=== PATIENT | male | born 1960 | race Caucasian/White ===

== ENCOUNTER 2020-08-24 08:35 | Outpatient (REF) | payer MEDICARE, MEDICAID, SELFPAY ==
[2020-08-24 10:28] LABS: Estimated Average Glucose 169 mg/dL; Hemoglobin A1c % 7.5 %
[2020-08-24 10:45] LABS: Alanine Aminotransferase 6 U/L (0-40); Albumin Level 4.5 g/dL (3.5-5.0); Alkaline Phosphatase 54 U/L (39-117); Anion Gap 16 (12-20); Aspartate Amino Transferase 9 U/L (5-37); Bilirubin Direct 0.2 mg/dL (0.0-0.5); Bilirubin Total 0.3 mg/dL (0.0-1.0); Blood Urea Nitrogen 10 mg/dL (9-16); Calcium 9.4 mg/dL (8.4-10.2); Carbon Dioxide 27 mmol/L (22-29); Chloride 97 mmol/L (96-108); Cholesterol 216 mg/dL; Estimated Glomerular Filt Rate > 60; Glucose Random 154 mg/dL (60-115); HDL Cholesterol 39 mg/dL; LDL Cholesterol Calculated 148 mg/dl; Potassium 4.5 mmol/L (3.3-5.1); Sodium 135 mmol/L (135-145); Total Protein 7.4 g/dL (6.5-8.0); Triglycerides 147 mg/dL
[2020-08-24 11:09] LABS: Thyroid Stimulating Hormone 1.99 uIU/mL (0.32-4.0)
[2020-08-24 11:17] LABS: Folate 9.1 ng/mL (> or = 4.0); Vitamin B12 189 pg/mL (200-900)
[2020-08-30 13:01] LABS: Vitamin D 25-OH, D2 <4 ng/mL; Vitamin D 25-OH, D3 6 ng/mL; Vitamin D 25-OH, Total 6 ng/mL (30-100)
== END 2020-08-24 08:36 | disposition home or self-care (01) ==
LOC: HO.10HDL 08:35
PROVIDERS: Visit Provider Internal Medicine
DX: E11.39 Type 2 diabetes mellitus with other diabetic ophthalmic complication (principal); E11.65 Type 2 diabetes mellitus with hyperglycemia
CPT/HCPCS: 36415; 80048; 80061; 80076; 82306; 82607; 82746; 83036; 84443

== ENCOUNTER 2021-05-06 15:57 | Emergency (ER) | payer MEDICARE, MEDICAID, SELFPAY ==
--- NOTE | ~2021-05-06 | CT_ITS ---
EXAMINATION: CT ABDOMEN AND PELVIS WITHOUT CONTRAST CLINICAL INFORMATION: Hematuria COMPARISON: None. TECHNIQUE: Multidetector volumetric imaging was performed from the lung bases through the pubic symphysis. Sagittal and coronal reformatted images were obtained on the technologist workstation. This CT examination was performed using dose optimization techniques as appropriate, variously including the following: *Automated exposure control *Adjustment of mA and/or kV according to patient size (this includes techniques or standardized protocols for targeted exams where dose is matched to indication/reason for exam; i.e. extremities or head) *Use of iterative reconstruction technique Total exam dose-length product 759 mGy-cm FINDINGS: The lack of intravenous contrast limits evaluation of the solid visceral organs including the liver, spleen, pancreas, and kidneys. LUNG BASES: The visualized lung bases are unremarkable. LIVER, GALLBLADDER, AND BILIARY TREE: Limited non-contrast evaluation is normal. No gross focal hepatic lesion. Normal liver size and contour. No gross biliary ductal dilation. The gallbladder is significantly distended. There are several areas of fundal gallbladder wall calcification. There is a rim calcified 2 cm calculus in the neck of the gallbladder. No gallbladder wall thickening or pericholecystic fluid to suggest acute cholecystitis. PANCREAS: Limited non-contrast evaluation is normal. No sindy-pancreatic fluid. SPLEEN: Tiny calcification in the inferior anterior spleen, possibly a granuloma. Otherwise no focal splenic lesion seen. The spleen is normal in size. ADRENAL GLANDS: Normal; no adrenal mass. KIDNEYS AND URETERS: Bilateral water density simple appearing renal cysts for which no imaging follow-up is recommended. No calculi or hydronephrosis. No hydroureter. GASTROINTESTINAL TRACT: Stomach is collapsed. Small bowel nondilated. Normal appendix. No colonic wall thickening or pericolonic inflammatory changes to suggest colitis or diverticulitis. ABDOMINAL WALL: No hernia seen. LYMPH NODES: No pathologically enlarged lymph nodes in the abdomen or pelvis. VASCULAR: Circumferential calcified atherosclerotic changes of the normal caliber abdominal aorta. BLADDER: Unremarkable. PELVIC VISCERA: Normal noncontrast appearance of the prostate and seminal vesicles. OSSEOUS STRUCTURES: No acute or suspicious osseous abnormalities. CT/CT abdomen pelvis wo con IMPRESSION: No renal calculi or hydronephrosis. No etiology for hematuria identified on noncontrast CT. 2 cm rim calcified gallstone in the neck of the gallbladder with several areas of gallbladder wall calcification. No gallbladder wall thickening or pericholecystic fluid to suggest acute cholecystitis. Recommend nonemergent outpatient surgical consultation given the gallbladder wall calcification, which may reflect developing porcelain gallbladder, and cholelithiasis.
[2021-05-06 16:04] VITALS: BP 190/93; PULSE 63; O2SAT 100
--- NOTE | 2021-05-06 16:09 | ED_ITS ---
HPI - General Adult General Chief complaint: Urogenital-Male Stated complaint: hematuria/diarrhea Time Seen by Provider: 05/06/21 16:02 Source: patient Mode of arrival: EMS Limitations: no limitations History of Present Illness HPI narrative: This is a very pleasant 60 years old male presented to the emergency department via ambulance with chief complaint of diarrhea, hematuria. 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 Onset (ago): day(s) (1) Radiation: non-radiation Severity: moderate Quality: aching Pain Consistency: constant Relieving factors: none Exacerbating factors: none Related Data Home Medications Medication Instructions Recorded Confirmed phenobarbital 32.4 mg tablet 32.4 mg PO QID 05/25/20 03/15/21 levetiracetam 250 mg tablet 250 mg PO BID 08/23/20 03/15/21 (Keppra) Previous Rx's Medication Instructions Recorded cholecalciferol (vitamin D3) 1,250 1,250 mcg PO QWEEK #12 cap 01/05/21 mcg (50,000 unit) capsule omeprazole 20 mg capsule,delayed 20 mg PO DAILY #90 cap 01/05/21 release paroxetine HCl 20 mg tablet 20 mg PO BEDTIME #30 tab 01/05/21 empagliflozin 25 mg tablet 25 mg PO DAILY #90 tab 02/04/21 (Jardiance) losartan 50 mg tablet 50 mg PO BID #90 tab 02/04/21 metformin 500 mg tablet 500 mg PO BID #180 tab 02/04/21 gemfibrozil 600 mg tablet 600 mg PO BID #60 tab 03/07/21 tamsulosin 0.4 mg capsule 0.8 mg PO BEDTIME #60 cap 03/07/21 VITAMIN B12 1,000 MCG SUBL TAB 1 tab PO DAILY #30 cap 03/27/21 finasteride 5 mg tablet 5 mg PO DAILY #30 tab 04/05/21 hydralazine 10 mg tablet 10 mg PO BID #60 tab 04/05/21 metoprolol succinate 100 mg 100 mg PO QPM #30 tab 04/05/21 tablet,extended release 24 hr Allergies Allergy/AdvReac Type Severity Reaction Status Date / Time lisinopril [LISINOPRIL] Allergy Unknown UNKNOWN Verified 05/06/21 11:22 penicillin V Allergy Unknown too long Verified 05/06/21 11:22 ago to remember Penicillins [PENICILLINS] Allergy Unknown to long Verified 05/06/21 11:22 ago to remember Review of Systems Review of Systems: Yes all other systems are reviewed and are negative Constitutional: Constitutional: Denies fever(s) and Denies headache(s) ENT: Denies headache(s) Cardiovascular: Cardiovascular: Reports no additional cardiovascular comp laints, Denies chest pain and Denies orthopnea Respiratory: Respiratory: Reports no additional respiratory complaints Gastrointestinal: Gastrointestinal: Reports no additional gastrointestinal complaints Neurologic: Denies headache(s) [facility] Past Medical History Attestation statement: The following information was validated with the patient. Medical History Benign prostate hyperplasia 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 Essential (primary) hypertension GERD (gastroesophageal reflux disease) Seizure Surgical History History of cataract surgery History of fasciotomy History of orthopedic surgery Family History Family History Father Myocardial infarction Mother Acute CVA (cerebrovascular accident) Brother In good health Brother In good health Sister In good health Sister In good health Social History Social History Housing: Apartment Alcohol intake: never Patient Tobacco Use Status: Former Tobacco user Use of substances other than those prescribed or required for medical reasons: No Advance Directives: No Advance Directives Information Provided: No service: No Current occupational status: disabled Physical Exam Const: General: cooperative Orientation/consciousness: patient oriented x3 HENMT: Head: Yes normal to inspection Face and sinus: Yes normal facial exam Mouth: Normal oral and palatal mucosa present Throat: Yes posterior oropharynx normal Neck: Neck: Yes normal visual inspection and Yes full ROM Chest: Chest palpation & inspection: normal inspection of the chest Resp: Effort & Inspection: normal respiratory effort Auscultation: clear to auscultation bilaterally Cardio: Jugular venous distension: no JVD Rate: regular rate Rhythm: regular rhythm GI: Inspection: Yes normal to inspection Palpation (GI): Soft to palpation, not firm, nontender and no guarding Skin: General skin exam: no rashes or lesions noted Neuro: General: patient oriented x3 Course Reevaluation(s) Reevaluation #1: His workup is essentially negative he has few red cell in the urine, I explained to the patient will need a cystoscopy which can be done as outpatient, I gave him the number the urologist Dr. Pickard he will call for follow-up at this time the patient can be discharged home Medical Decision Making Lab Data Result diagrams: 05/06/21 16:36 05/06/21 16:36 Labs: Lab Results 05/06/21 05/06/21 05/06/21 Range/Units 16:32 16:36 16:36 WBC 4.3 L (4.8-10.8) X10*3/uL RBC 4.70 (4.60-5.80) X10*6/uL Hgb 14.1 (14.0-18.0) g/dl Hct 42.0 (42.0-52.0) % MCV 89.4 (80.0-98.0) fL MCH 30.0 (27.0-33.0) pg MCHC 33.6 (31.0-36.0) g/dl RDW 13.2 (11.0-16.0) % Plt Count 218 (160-400) X10*3/uL MPV 10.0 (9.4-12.4) fL Immature Gran % (Auto) 0.2 (0.0-0.4) % Neut % (Auto) 59.2 (45-73) % Lymph % (Auto) 22.1 (20-40) % [place] % (Auto) 8.2 (2-11) % Eos % (Auto) 9.6 H (0-4) % Baso % (Auto) 0.7 (0-2) % Lymph # (Auto) 0.9 L (1.2-4.9) X10*3/uL [place] # (Auto) 0.4 (0.1-1.2) X10*3/uL Eos # (Auto) 0.4 (0.0-0.4) X10*3/uL Baso # (Auto) 0.0 (0.0-0.2) X10*3/uL Abs Immat Gran (auto) 0.01 (0.00-0.03) X10*3/uL Absolute Neuts (auto) 2.5 (2.0-8.3) x10*3/uL Absolute Nucleated RBC 0.000 (0.0-0.012) X10*3/uL Nucleated RBC % (auto) 0.0 (0.0-0.2) /100WBC Sodium 136 (135-145) mmol/L Potassium 3.7 (3.3-5.1) mmol/L Chloride 96 (96-108) mmol/L Carbon Dioxide 25 (22-29) mmol/L Anion Gap 19 (12-20) BUN 9 (9-16) mg/dL Creatinine 0.76 (0.5-1.4) mg/dL Estim Creat Clear Calc TNP Estimated GFR > 60 Random Glucose 61 D (60-115) mg/dL Calcium 9.3 (8.4-10.2) mg/dL Total Bilirubin 0.5 (0.0-1.0) mg/dL AST 15 D (5-37) U/L ALT 19 (0-40) U/L Alkaline Phosphatase 58 (39-117) U/L Total Protein 7.1 (6.5-8.0) g/dL Albumin 4.4 (3.5-5.0) g/dL Lipase 24 (8-78) U/L Urine Color YELLOW Urine Appearance CLOUDY Urine pH 6.0 (5.0-8.0) Ur Specific [place] 1.015 (1.005-1.025) Urine Protein NEG (NEG-TRACE) MG/DL Urine Glucose (UA) 250 H (NEG) MG/DL Urine Ketones 5 (NEG) MG/DL Urine Blood 3+ H (NEG) Urine Nitrite NEG (NEG) Ur Leukocyte Esterase NEG (NEG) Urine RBC 50-75 H (0) /HPF Urine WBC 0-2 (0-4) /HPF Ur Squamous Epith Cells TRACE /LPF Urine Bacteria NONE /LPF Imaging Data CT scan - abdomen: Radiologist's impression: VASCULAR: Circumferential calcified atherosclerotic changes of the normal caliber abdominal aorta. BLADDER: Unremarkable.? PELVIC VISCERA: Normal noncontrast appearance of the prostate and seminal vesicles.? OSSEOUS STRUCTURES: No acute or suspicious osseous abnormalities.? CT/CT abdomen pelvis wo con IMPRESSION: No renal calculi or hydronephrosis. No etiology for hematuria identified on noncontrast CT. ? 2 cm rim calcified gallstone in the neck of the gallbladder with several areas of gallbladder wall calcification. No gallbladder wall thickening or pericholecystic fluid to suggest acute cholecystitis. Recommend nonemergent outpatient surgical consultation given the gallbladder wall calcification, which may reflect developing porcelain gallbladder, and cholelithiasis. ? ? Dictated By: FRANK GONZALES MD Signed By: <Electronically signed by FRANK GONZALES MD in OV> 05/06/21 1704 DD/ 1 Discharge Plan Discharge Clinical Impression: Hematuria, Diarrhea Patient Disposition: Home, Self-Care Instructions: Hematuria (ED) Additional Instructions: Please follow-up with Dr. Pickard call his office on Sunday, as well as the diarrhea goes stay on liquid diet no dairy product Prescriptions: No Action cholecalciferol (vitamin D3) 1,250 mcg (50,000 unit) capsule 1,250 mcg PO QWEEK Qty: 12 RF: 1 omeprazole 20 mg capsule,delayed release(DR/EC) 20 mg PO DAILY Qty: 90 RF: 1 paroxetine HCl 20 mg tablet 20 mg PO BEDTIME Qty: 30 RF: 5 Jardiance 25 mg tablet 25 mg PO DAILY Qty: 90 RF: 1 losartan 50 mg tablet 50 mg PO BID Qty: 90 RF: 1 metformin 500 mg tablet 500 mg PO BID Qty: 180 RF: 1 gemfibrozil 600 mg tablet 600 mg PO BID Qty: 60 RF: 5 tamsulosin 0.4 mg capsule 0.8 mg PO BEDTIME Qty: 60 RF: 1 VITAMIN B12 1,000 MCG SUBL TAB 1 tab PO DAILY Qty: 30 RF: 2 metoprolol succinate 100 mg tablet extended release 24 hr 100 mg PO QPM Qty: 30 RF: 2 hydralazine 10 mg tablet 10 mg PO BID Qty: 60 RF: 5 finasteride 5 mg tablet 5 mg PO DAILY Qty: 30 RF: 5 phenobarbital 32.4 mg tablet 32.4 mg PO QID RF: 0 levetiracetam [Keppra] 250 mg tablet 250 mg PO BID RF: 0 Referrals: Rudi Pickard MD [Physician] - 3 days
[2021-05-06 16:39] LABS: Appearance Urine CLOUDY; Color Urine YELLOW; Glucose Urine UA 250 MG/DL (NEG); Leukocyte Esterase Urine NEG (NEG); Nitrite Urine NEG (NEG); Specific Gravity - Urine 1.015 (1.005-1.025); UACC Culture Trigger NO; Urine Blood 3+ (NEG); Urine Ketones 5 MG/DL (NEG); Urine Protein NEG (NEG-TRACE)
[2021-05-06 16:40] LABS: MANUAL DIFF FLAG NO
[2021-05-06 16:41] LABS: Basophils Percent Auto 0.7 % (0-2); Eosinophils Absolute Auto 0.4 X10*3/uL (0.0-0.4); Eosinophils Percent Auto 9.6 % (0-4); Hemoglobin 14.1 g/dl (14.0-18.0); Imm Gran Abs Auto 0.01 X10*3/uL (0.00-0.03); Imm Gran Pct Auto 0.2 % (0.0-0.4); Lymphocytes Absolute Auto 0.9 X10*3/uL (1.2-4.9); Lymphocytes Percent Auto 22.1 % (20-40); Mean Corpuscular HGB Conc 33.6 g/dl (31.0-36.0); Mean Corpuscular Volume 89.4 fL (80.0-98.0); Monocytes Absolute Auto 0.4 X10*3/uL (0.1-1.2); Monocytes Percent Auto 8.2 % (2-11); Neutrophils Absolute Auto 2.5 x10*3/uL (2.0-8.3); Neutrophils Percent Auto 59.2 % (45-73); Platelet Count 218 X10*3/uL (160-400); Red Cell Distribution Width 13.2 % (11.0-16.0); White Blood Count 4.3 X10*3/uL (4.8-10.8)
[2021-05-06 16:48] LABS: WBC Urine 0-2 /HPF (0-4)
[2021-05-06 16:49] LABS: RBC Urine 50-75 /HPF (0); Squamous Epithelial Cell Urine TRACE /LPF
[2021-05-06 16:55] LABS: Alanine Aminotransferase 19 U/L (0-40); Albumin Level 4.4 g/dL (3.5-5.0); Alkaline Phosphatase 58 U/L (39-117); Anion Gap 19 (12-20); Aspartate Amino Transferase 15 U/L (5-37); Bilirubin Total 0.5 mg/dL (0.0-1.0); Blood Urea Nitrogen 9 mg/dL (9-16); Calcium 9.3 mg/dL (8.4-10.2); Carbon Dioxide 25 mmol/L (22-29); Chloride 96 mmol/L (96-108); Estimated Glomerular Filt Rate > 60; Glucose Random 61 mg/dL (60-115); Lipase 24 U/L (8-78); Potassium 3.7 mmol/L (3.3-5.1); Sodium 136 mmol/L (135-145); Total Protein 7.1 g/dL (6.5-8.0)
[2021-05-06] MEDS: 0.9 % Sodium Chloride 1,000 ML 999 ML IVCONT (16:59)
[2021-05-06] MEDS: Acetaminophen 325 MG TABLET 650 MG PO (17:09)
[2021-05-06] MEDS: oxyCODONE HCl Immed Release 5 MG TABLET PO (22:34)
[2021-05-06 22:38] VITALS: BP 140/77; PULSE 62; RESP 20; O2SAT 96
== END 2021-05-06 23:06 | disposition home or self-care (01) ==
PROVIDERS: Emergency Provider Emergency Medicine; PCP Internal Medicine
DX: R31.9 Hematuria, unspecified (principal); R19.7 Diarrhea, unspecified; G80.8 Other cerebral palsy; E11.9 Type 2 diabetes mellitus without complications; I10 Essential (primary) hypertension
CPT/HCPCS: 36415; 74176; 80053; 81001; 83690; 85025; 99284

== ENCOUNTER 2021-08-07 12:11 | Emergency (ER) | payer MEDICARE, MEDICAID, SELFPAY ==
[2021-08-07 12:18] VITALS: BP 142/88; PULSE 70; O2SAT 100
[2021-08-07 12:22] VITALS: BP 142/88; PULSE 70; RESP 17; TEMP 37.1; O2SAT 100; BMI 31.8
--- NOTE | 2021-08-07 12:42 | ED_ITS ---
HPI - Skin/Abscess/Foreign Bdy General Chief complaint: Skin/Abscess/Foreign Body Stated complaint: shingles Time Seen by Provider: 08/07/21 12:42 Source: patient Mode of arrival: ambulatory Limitations: no limitations History of Present Illness HPI narrative: This is a 61-year-old male past medical history significant for BPH, GERD, diabetes, cerebral palsy, hypertension, epilepsy presenting with a rash to the l eft side of his neck, spreading forward x3 days. Patient tells me that the rash is itchy, and it coburn. He does tell me that he felt like something was there before the rash began. He denies prodrome most symptoms such as fevers, chills, upper respiratory symptoms. He denies chest pain, shortness of breath, abdominal pain, headache, dizziness, vision changes. MD complaint: rash Onset (ago): day(s) (3) Location: neck Severity: moderate Severity scale (1-10): 5 Quality: burning and pruritic Pain Consistency: constant Relieving factors: none Exacerbating factors: none Context: none Associated symptoms: denies other symptoms Treatments prior to arrival: none Related Data Home Medications Medication Instructions Recorded Confirmed phenobarbital 32.4 mg tablet 32.4 mg PO QID 05/25/20 06/16/21 levetiracetam 250 mg tablet 250 mg PO BID 08/23/20 06/16/21 (Araceli) Previous Rx's Medication Instructions Recorded gemfibrozil 600 mg tablet 600 mg PO BID #60 tab 03/07/21 finasteride 5 mg tablet 5 mg PO DAILY #30 tab 04/05/21 hydralazine 10 mg tablet 10 mg PO BID #60 tab 04/05/21 cholecalciferol (vitamin D3) 1,250 1,250 mcg PO QWEEK #12 cap 06/16/21 mcg (50,000 unit) capsule omeprazole 20 mg capsule,delayed 20 mg PO DAILY #90 cap 06/19/21 release metoprolol succinate 100 mg 100 mg PO QPM #30 tab 07/02/21 tablet,extended release 24 hr paroxetine HCl 20 mg tablet 20 mg PO BEDTIME #30 tab 07/02/21 tamsulosin 0.4 mg capsule 0.8 mg PO BEDTIME #60 cap 07/02/21 mecobalamin (vitamin B12) 1,000 1,000 mcg SUBLINGUAL DAILY #90 tab 01/31/22 mcg disintegrating tablet,sublingual empagliflozin 25 mg tablet 25 mg PO DAILY #90 tab 08/03/21 (Jardiance) losartan 50 mg tablet 50 mg PO BID #90 tab 08/03/21 metformin 500 mg tablet 500 mg PO BID #180 tab 08/03/21 prednisone 20 mg tablet 20 mg PO DAILY 5 Days #5 tab 08/07/21 valacyclovir 1 gram tablet 1,000 mg PO TID 7 Days #21 tab 08/07/21 (Valtrex) Allergies Allergy/AdvReac Type Severity Reaction Status Date / Time lisinopril [LISINOPRIL] Allergy Unknown UNKNOWN Verified 06/16/21 09:12 penicillin V Allergy Unknown too long Verified 06/16/21 09:12 ago to remember Penicillins [PENICILLINS] Allergy Unknown to long Verified 06/16/21 09:12 ago to remember Review of Systems Review of Systems: Constitutional : No Weight loss, No Fever, No Chills, No Fatigue, No Malaise ENT/Mouth : No sore throat, No Rhinorrhea Eyes: No Eye Pain, No Swelling, No Redness Cardiovascular : No Chest Pain, No SOB, No Dyspnea on Exertion, No Orthopnea, No Edema, No Palpitations Respiratory : No Cough, No Sputum, No Wheezing Gastrointestinal : No Nausea, No Vomiting, No Diarrhea, No Constipation, No abdominal Pain, No Hematochezia, No Melena Genitourinary : No Dysuria, No Urinary Frequency, No Hematuria, Musculoskeletal : No joint pain, No Myalgias, No Joint Swelling Skin : No Skin Lesions, + rash Neuro : No Weakness, No Numbness, No Dizziness, No Headache Psych : No Anxiety/Panic, No Depression All other systems reviewed and are negative Yes all other systems are reviewed and are negative [facility] Past Medical History Attestation statement: The following information was validated with the patient. Source: old records reviewed and nursing notes reviewed Medical History Benign prostate hyperplasia 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 Essential (primary) hypertension GERD (gastroesophageal reflux disease) Seizure Surgical History History of cataract surgery History of fasciotomy History of orthopedic surgery Family History Family History Father Myocardial infarction Mother Acute CVA (cerebrovascular accident) Brother In good health Brother In good health Sister In good health Sister In good health Social History Social History Housing: Apartment Alcohol intake: never Patient Tobacco Use Status: Former Tobacco user Advance Directives: No Advance Directives Information Provided: No service: No Current occupational status: disabled Physical Exam Vital Signs: Vital Signs: Last Vital Signs Temp 98.8 F 08/07/21 12:22 Pulse 70 08/07/21 12:22 Resp 17 08/07/21 12:22 BP 142/88 H 08/07/21 12:22 Pulse Ox 100 08/07/21 12:22 BMI result Body Mass Index 31.8 VSS Appearance: Alert.? Oriented X3.? No acute distress.? Head: Normocephalic, atraumatic, no step-offs or deformities Eyes: Pupils equal, round and reactive to light.? ENT: Pharynx normal.? Neck: Normal inspection.? Neck supple.? CVS: Normal heart rate and rhythm.? Pulses normal.? Respiratory: No respiratory distress.? Breath sounds normal.? Abdomen: Soft and nontender.? Skin: Skin warm and dry.? Normal skin color.? Normal skin turgor.? + rash to the left side of neck in a dermatomal pattern, not crossing midline. (C3) image attacked below. Extremities: No lower extremity edema.? No calf ttp. 5/5 strength to bilateral upper and lower extremities Back: No midline tenderness, no C-spine tenderness, full range of motion, no CVA tenderness bilaterally Neuro: Oriented X 3.? No motor deficit.? No sensory deficit. Course Reevaluation(s) Reevaluation #1: Dr. Tubbs agrees with my dx will dc home on valtrex and prednisone comfortable with dc home. Time: 12:47 MDM - Skin/Abscess/Foreign Bdy MDM Narrative Medical decision making narrative: 1245 61 yo m presents with a rash to the left side of his neck X3 days worsening describes it as a burning/puritic PE significant for rash over the left side of dermatomes C3. Images in the chart. History and physical examination consistent with shingles. Patient will be treated with Valtrex. Patient has been educated on plan. The patient has no questions. Educated him on worrisome signs and symptoms advised him to return with new or worsening symptoms. Medical Records Attestation: I reviewed the patient's medical records. Lab Data Attestation: I reviewed the patient's lab results. Critical Care Time Critical Care Time Critical Care Time: No Discharge Plan Discharge Clinical Impression: Shingles Patient Disposition: Home, Self-Care Instructions: [place] (ED) Additional Instructions: Take your medications as prescribed. If you were prescribed antibiotics today, it is important that you take your medication to their entirety, do not skip any doses, do not finish them early. Follow-up with your primary care provider this week. Return to the emergency department with new or worsening symptoms. Such as fevers, chills, chest pain, shortness of breath, abdominal pain, headache, dizziness, vision changes. In case of emergency call 911 Prescriptions: New valacyclovir [Valtrex] 1 gram tablet 1,000 mg PO TID 7 Days Qty: 21 0RF prednisone 20 mg tablet 20 mg PO DAILY 5 Days Qty: 5 0RF No Action gemfibrozil 600 mg tablet 600 mg PO BID Qty: 60 5RF hydralazine 10 mg tablet 10 mg PO BID Qty: 60 5RF finasteride 5 mg tablet 5 mg PO DAILY Qty: 30 5RF omeprazole 20 mg capsule,delayed release(DR/EC) 20 mg PO DAILY Qty: 90 1RF paroxetine HCl 20 mg tablet 20 mg PO BEDTIME Qty: 30 5RF metoprolol succinate 100 mg tablet extended release 24 hr 100 mg PO QPM Qty: 30 2RF tamsulosin 0.4 mg capsule 0.8 mg PO BEDTIME Qty: 60 1RF mecobalamin (vitamin B12) 1,000 mcg tablet,disintegrating 1,000 mcg sublingual DAILY Qty: 90 1RF Rx Instructions: place tablet under tongue and allow to dissolve for at least30 secs before swallowing metformin 500 mg tablet 500 mg PO BID Qty: 180 1RF losartan 50 mg tablet 50 mg PO BID Qty: 90 1RF Jardiance 25 mg tablet 25 mg PO DAILY Qty: 90 1RF phenobarbital 32.4 mg tablet 32.4 mg PO QID 0RF levetiracetam [Keppra] 250 mg tablet 250 mg PO BID 0RF cholecalciferol (vitamin D3) 1,250 mcg (50,000 unit) capsule 1,250 mcg PO QWEEK Qty: 12 1RF Referrals: Luis Fernando Garcia MD [Primary Care Provider] - 2 days
== END 2021-08-07 13:53 | disposition home or self-care (01) ==
PROVIDERS: Emergency Provider Emergency Medicine; PCP Internal Medicine
DX: B02.9 Zoster without complications (principal); R21 Rash and other nonspecific skin eruption; Z79.899 Other long term (current) drug therapy; Z87.891 Personal history of nicotine dependence
CPT/HCPCS: 99283

== ENCOUNTER → 2021-09-13 09:13 | Outpatient (BNVA) | payer MEDICARE, MEDICAID, SELFPAY | PROVIDERS: PCP Internal Medicine | DX: R31.9 Hematuria, unspecified (principal) | CPT/HCPCS: 99202 ==

== ENCOUNTER 2021-09-30 10:56 | Outpatient (REF) | payer MEDICARE, MEDICAID, SELFPAY ==
[2021-09-30 11:04] LABS: Urine Cytology See Pathology rpt
== END 2021-09-30 10:57 | disposition home or self-care (01) ==
LOC: HO.LNP 10:56
DX: R31.9 Hematuria, unspecified (principal)
CPT/HCPCS: 88112

== ENCOUNTER 2021-10-27 13:42 | Outpatient (REF) | payer MEDICARE, MEDICAID, SELFPAY ==
--- NOTE | ~2021-10-27 | US_ITS ---
EXAMINATION: US RETROPERITONEAL LIMITED (RENAL ONLY) CLINICAL INFORMATION: Hematuria. COMPARISON: CT abdomen and pelvis 05/06/2021. Ultrasound renal 10/09/2011. TECHNIQUE: Real-time imaging of the kidneys. FINDINGS: RIGHT KIDNEY: 10.9 x 5.7 x 6.7 cm (SAG x AP x TRV). The kidney is normal in size, contour, and echogenicity. Renal cortical thickness is normal. No renal calculi or hydronephrosis. There is anechoic cyst measuring 3.2 x 3.2 x 3.1 cm in midpole. No additional cyst seen. LEFT KIDNEY: 11.7 x 5.7 x 6.1 cm (SAG x AP x TRV). The kidney is normal in size, contour, and echogenicity. Renal cortical thickness is normal. No renal calculi or hydronephrosis. There is anechoic cyst in midpole measuring 2.8 x 2.1 x 2.2 cm. US/US renal BI IMPRESSION: Bilateral renal cysts. No echogenic stones or hydronephrosis seen.
== END 2021-10-27 13:43 | disposition home or self-care (01) ==
LOC: HO.HMGCX 13:42
DX: R31.9 Hematuria, unspecified (principal)
CPT/HCPCS: 76775

== ENCOUNTER → 2021-11-11 09:28 | Outpatient (BNVA) | payer MEDICARE, MEDICAID, SELFPAY | PROVIDERS: PCP Internal Medicine | DX: Z13.89 Encounter for screening for other disorder (principal) | CPT/HCPCS: Q3014 ==

== ENCOUNTER 2021-12-08 10:15 | Outpatient (REF) | payer MEDICARE, MEDICAID, SELFPAY ==
[2021-12-08 10:37] LABS: Hemoglobin 13.6 g/dl (14.0-18.0); Mean Corpuscular HGB Conc 32.4 g/dl (31.0-36.0); Mean Corpuscular Volume 89.6 fL (80.0-98.0); Mean Platelet Volume 10.8 fL (9.4-12.4); Platelet Count 189 X10*3/uL (160-400); Red Blood Count 4.69 X10*6/uL (4.60-5.80); White Blood Count 5.2 X10*3/uL (4.8-10.8)
[2021-12-08 10:46] LABS: Estimated Average Glucose 143 mg/dL; Hemoglobin A1c % 6.6 %
[2021-12-08 11:07] LABS: Alanine Aminotransferase 7 U/L (0-40); Albumin Level 4.3 g/dL (3.5-5.0); Alkaline Phosphatase 65 U/L (39-117); Anion Gap 15 (12-20); Aspartate Amino Transferase 9 U/L (5-37); Bilirubin Direct 0.2 mg/dL (0.0-0.5); Bilirubin Total 0.4 mg/dL (0.0-1.0); Blood Urea Nitrogen 14 mg/dL (9-16); Calcium 9.6 mg/dL (8.4-10.2); Carbon Dioxide 27 mmol/L (22-29); Chloride 98 mmol/L (96-108); Cholesterol 151 mg/dL; Estimated Glomerular Filt Rate > 60; Glucose Random 107 mg/dL (60-115); HDL Cholesterol 50 mg/dL; LDL Cholesterol Calculated 89 mg/dl; Potassium 4.5 mmol/L (3.3-5.1); Sodium 135 mmol/L (135-145); Total Protein 7.3 g/dL (6.5-8.0); Triglycerides 64 mg/dL
[2021-12-08 11:31] LABS: Thyroid Stimulating Hormone 2.45 uIU/mL (0.32-4.0)
== END 2021-12-08 10:16 | disposition home or self-care (01) ==
LOC: HO.10HDL 10:15
PROVIDERS: Visit Provider Internal Medicine
DX: E11.39 Type 2 diabetes mellitus with other diabetic ophthalmic complication (principal); E11.65 Type 2 diabetes mellitus with hyperglycemia; K21.9 Gastro-esophageal reflux disease without esophagitis
CPT/HCPCS: 36415; 80048; 80061; 80076; 83036; 84443; 85027

== ENCOUNTER → 2022-06-21 13:10 | Outpatient (BNVA) | payer MEDICARE, MEDICAID, SELFPAY | PROVIDERS: PCP Internal Medicine; Visit Provider Nurse Practitioner Family | DX: N40.0 Benign prostatic hyperplasia without lower urinary tract symptoms (principal); N28.1 Cyst of kidney, acquired; Z79.899 Other long term (current) drug therapy | CPT/HCPCS: Q3014 ==

== ENCOUNTER 2022-10-05 13:59 | Outpatient (REF) | payer MEDICARE, MEDICAID, SELFPAY ==
[2022-10-05 14:42] LABS: Hematocrit 39.6 % (42.0-52.0); Hemoglobin 12.3 g/dl (14.0-18.0); Mean Corpuscular HGB Conc 31.1 g/dl (31.0-36.0); Mean Corpuscular Hemoglobin 26.7 pg (27.0-33.0); Mean Corpuscular Volume 86.1 fL (80.0-98.0); Mean Platelet Volume 11.1 fL (9.4-12.4); Platelet Count 271 X10*3/uL (160-400); Red Cell Distribution Width 14.6 % (11.0-16.0); White Blood Count 4.7 X10*3/uL (4.8-10.8)
[2022-10-05 14:51] LABS: Estimated Average Glucose 134 mg/dL; Hemoglobin A1C 149.8062 umol/L; Hemoglobin A1c % 6.3 %
[2022-10-05 15:17] LABS: Creatinine Urine 61.39 mg/dL; Microalbum/Creatinine Ratio Ur 11.4 ug/mg cr
[2022-10-05 15:28] LABS: Alanine Aminotransferase 7 U/L (0-40); Albumin Level 3.7 g/dL (3.5-5.0); Alkaline Phosphatase 72 U/L (39-117); Anion Gap 22 (12-20); Aspartate Amino Transferase 12 U/L (5-37); Bilirubin Direct 0.3 mg/dL (0.0-0.5); Bilirubin Total 0.6 mg/dL (0.0-1.0); Blood Urea Nitrogen 13 mg/dL (9-16); Calcium 9.4 mg/dL (8.4-10.2); Carbon Dioxide 22 mmol/L (22-29); Chloride 98 mmol/L (96-108); Cholesterol 149 mg/dL; Estimated Glomerular Filt Rate > 60; Glucose Random 62 mg/dL (60-115); HDL Cholesterol 32 mg/dL; LDL Cholesterol Calculated 97 mg/dl; Potassium 4.8 mmol/L (3.3-5.1); Sodium 137 mmol/L (135-145); Total Protein 6.5 g/dL (6.5-8.0); Triglycerides 101 mg/dL
[2022-10-05 15:36] LABS: Thyroid Stimulating Hormone 3.22 uIU/mL (0.32-4.0)
== END 2022-10-05 14:00 | disposition home or self-care (01) ==
LOC: HO.LAB 13:59
PROVIDERS: PCP Internal Medicine; Visit Provider Internal Medicine
DX: E11.39 Type 2 diabetes mellitus with other diabetic ophthalmic complication (principal); E11.65 Type 2 diabetes mellitus with hyperglycemia; G80.8 Other cerebral palsy
CPT/HCPCS: 36415; 80048; 80061; 80076; 82043; 83036; 84443; 85027

== ENCOUNTER 2022-10-17 09:36 | Outpatient (REF) | payer MEDICARE, MEDICAID, SELFPAY ==
[2022-10-17 10:41] LABS: Alanine Aminotransferase 8 U/L (0-40); Albumin Level 3.9 g/dL (3.5-5.0); Alkaline Phosphatase 73 U/L (39-117); Anion Gap 24 (12-20); Aspartate Amino Transferase 15 U/L (5-37); Bilirubin Direct 0.3 mg/dL (0.0-0.5); Bilirubin Total 0.7 mg/dL (0.0-1.0); Blood Urea Nitrogen 12 mg/dL (9-16); Calcium 9.7 mg/dL (8.4-10.2); Carbon Dioxide 22 mmol/L (22-29); Chloride 95 mmol/L (96-108); Estimated Glomerular Filt Rate > 60; Glucose Random 82 mg/dL (60-115); Potassium 4.5 mmol/L (3.3-5.1); Sodium 136 mmol/L (135-145); Total Protein 6.9 g/dL (6.5-8.0)
[2022-10-22 18:29] LABS: Levetiracetam Keppra 13.6 mcg/mL (6.0-46.0)
== END 2022-10-17 09:37 | disposition home or self-care (01) ==
LOC: HO.LAB 09:36
PROVIDERS: Visit Provider Psychiatry & Neurology Neurology
DX: G40.909 Epilepsy, unspecified, not intractable, without status epilepticus (principal); Z79.899 Other long term (current) drug therapy
CPT/HCPCS: 36415; 80048; 80076; 80177; 80184

== ENCOUNTER 2022-10-25 12:46 | Emergency (ER) | payer MEDICARE, MEDICAID, SELFPAY ==
[2022-10-25] VITALS (9 sets, daily range): BP systolic 94–130; BP diastolic 57–74; PULSE 60–68; RESP 15–18; TEMP 36.5–36.9; O2SAT 94–99; BMI 33.9
--- NOTE | 2022-10-25 | ECG_ITS ---
Test Reason : dizziness Blood Pressure : / mmHG Vent. Rate : 061 BPM Atrial Rate : 061 BPM P-R Int : 170 ms QRS Dur : 076 ms QT Int : 444 ms P-R-T Axes : 013 -03 011 degrees QTc Int : 446 ms Normal sinus rhythm Low voltage QRS Nonspecific T wave abnormality Abnormal ECG When compared with ECG of 09-AUG-2018 12:41, Vent. rate has decreased BY 32 BPM Referred By: Generic ED Physician Electronically Signed By:SIM NOVAK
--- NOTE | ~2022-10-25 | CT_ITS ---
EXAMINATION: CT HEAD WITHOUT CONTRAST CLINICAL INFORMATION: Increased falls for one week. COMPARISON: CT head from 05/02/2016. TECHNIQUE: Contiguous axial imaging was performed from the skull base to vertex without intravenous administration of contrast. This CT examination was performed using dose optimization techniques as appropriate, variously including the following: *Automated exposure control. *Adjustment of mA and/or kV according to patient size (this includes techniques or standardized protocols for targeted exams where dose is matched to indication/reason for exam; i.e. extremities or head). *Use of iterative reconstruction technique. 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 Exvacuodilatation of the left lateral ventricle. No evidence of acute intracranial hemorrhage. No new loss of hu-white matter differentiation. Scattered and partially confluent hypoattenuation in the periventricular and deep white matter are consistent with moderate microangiopathy. Proportional prominence of the ventricles and sulcal spaces without evidence of obstructive hydrocephalus. Chronic mild leftward midline shift. No extra-axial fluid collections. Calcific atherosclerotic disease of the intracranial internal carotid and vertebral arteries. No acute soft tissue or osseous abnormalities. Moderate mucosal thickening of the visualized left maxillary sinus. Mild mucosal thickening of the remaining paranasal sinuses. The mastoid air cells and middle ear cavities are clear. CT/CT head/brain wo IV con IMPRESSION: 1. No evidence of acute intracranial hemorrhage or edematous territorial infarction. 2. 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 Moderate underlying microangiopathy and generalized cerebral volume loss.
--- NOTE | 2022-10-25 14:54 | ED_ITS ---
HPI - General Adult General Chief complaint: Fall Stated complaint: Found on floor, no LOC, no pain per EMS Time Seen by Provider: 10/25/22 14:35 Source: patient Mode of arrival: EMS Limitations: no limitations History of Present Illness HPI narrative: Patient comes to the emergency room via ambulance from home. Patient states that he is usually wheelchair bound, he was trying to get from his wheelchair to his bed and patient lost his balance and fell. Patient states that over last week he has had increased falls and dizziness. Patient describes dizziness as room spinning with head movement especially when he tries to sit up from lying down position or if he leans forward. Patient denies any chest pain or shortness of breath. Patient states that today he did not fall hard, denies head strike or loss of consciousness, patient denies being on blood thinners. Patient states that he has chronic headaches, states that he gets Keppra to control the headaches. Patient states that today he has a headache again but it is not unusual for him. Related Data Home Medications Medication Instructions Recorded Confirmed phenobarbital 32.4 mg tablet 32.4 mg PO QID 05/25/20 06/21/22 levetiracetam 250 mg tablet 250 mg PO BID 08/23/20 06/21/22 (Keppra) sumatriptan succinate 50 mg tablet 50 mg PO 09/13/21 06/21/22 Previous Rx's Medication Instructions Recorded valacyclovir 1 gram tablet 1,000 mg PO TID 7 days #21 tabs 08/07/21 (Valtrex) cholecalciferol (vitamin D3) 1,250 1,250 mcg PO QWEEK #12 caps 08/12/21 mcg (50,000 unit) capsule gabapentin 300 mg capsule 300 mg PO TID #60 caps 08/12/21 (Neurontin) mecobalamin (vitamin B12) 1,000 1,000 mcg sublingual DAILY #90 tabs 09/08/21 mcg disintegrating tablet,sublingual miscellaneous medical supply 1 ea miscellaneous DAILY 12 months 09/28/21 #1 ea ketoconazole 2 % topical cream 1 appl topical BID #30 grams 12/08/21 finasteride 5 mg tablet 5 mg PO DAILY #30 tabs 04/04/22 hydralazine 10 mg tablet 10 mg PO BID #60 tabs 10/18/22 omeprazole 20 mg capsule,delayed 20 mg PO DAILY #90 caps 06/12/22 release metoprolol succinate 100 mg 100 mg PO QPM #90 tabs 07/25/22 tablet,extended release 24 hr paroxetine HCl 20 mg tablet 20 mg PO BEDTIME #90 tabs 07/25/22 triamcinolone acetonide 0.025 % 1 appl topical BID #15 grams 07/31/22 topical cream empagliflozin 25 mg tablet 25 mg PO DAILY #90 tabs 08/03/22 (Jardiance) losartan 50 mg tablet 50 mg PO BID #180 tabs 08/03/22 metformin 500 mg tablet 500 mg PO BID #180 tabs 08/03/22 gemfibrozil 600 mg tablet 600 mg PO BID #60 tabs 09/02/22 tamsulosin 0.4 mg capsule 0.8 mg PO BEDTIME #60 caps 09/02/22 Allergies Allergy/AdvReac Type Severity Reaction Status Date / Time lisinopril [LISINOPRIL] Allergy Unknown UNKNOWN Verified 10/12/22 09:12 penicillin V Allergy Unknown too long Verified 10/12/22 09:12 ago to remember Penicillins [PENICILLINS] Allergy Unknown to long Verified 10/12/22 09:12 ago to remember Review of Systems Review of Systems: Constitutional : No Weight loss, No Fever, No Chills, No Night Sweats, No Fatigue, No Malaise ENT/Mouth : No Hearing loss, No Ear Pain, No Nasal Congestion, No Sinus Pain, No Hoarseness, No sore throat, No Rhinorrhea, No Swallowing Difficulty Eyes: No Eye Pain, No Swelling, No Redness, No Foreign Body, No Discharge, No Vision Changes Cardiovascular : No Chest Pain, No SOB, No Dyspnea on Exertion, No Orthopnea, No Edema, No Palpitations Respiratory : No Cough, No Sputum, No Wheezing, No Smoke Exposure, No Dyspnea Gastrointestinal : No Nausea, No Vomiting, No Diarrhea, No Constipation, No abdominal Pain, No Hematochezia, No Melena Genitourinary : no irregular bleeding, No Dysuria, No Urinary Frequency, No Hematuria, No Urinary Incontinence, No Urgency, No Flank Pain, No Urinary Flow Changes, No Hesitancy Musculoskeletal : No joint pain, No Myalgias, No Joint Swelling Skin : No Skin Lesions, No rash Neuro : No Weakness, No Numbness, No Paresthesias, No Loss of Consciousness, complaining of dizziness described as room spinning with head movements, complaining of headache from earlier today prior to the fall Psych : No Anxiety/Panic, No Depression, No SI/HI/AH/VH, No Social Issues, Heme/Lymph: No Bruising, No Bleeding,No Lymphadenopathy Endocrine : No Polyuria, No Polydipsia, No Temperature Intolerance [facility] Past Medical History Medical History Benign prostate hyperplasia 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 Essential (primary) hypertension GERD (gastroesophageal reflux disease) Renal cysts, acquired, bilateral Seizure Surgical History History of cataract surgery History of fasciotomy History of orthopedic surgery Family History Family History Father Myocardial infarction Mother Acute CVA (cerebrovascular accident) Brother In good health Brother In good health Sister In good health Sister In good health Social History Social History Housing: Apartment Alcohol intake: never Patient Tobacco Use Status: Former Tobacco user Smoked in Last 30 Days: No e-Cigarette/Vaping Use: Never Used Second Hand Smoke Exposure: No Use of substances other than those prescribed or required for medical reasons: No Advance Directives: No Advance Directives Information Provided: Yes service: No Current occupational status: disabled Cognitive needs: Yes (wheelchair) Hearing needs: No Vision needs: Yes (glasses) Physical Exam ED Vital Signs: Vital Signs - 24 hr 10/25/22 13:40 10/25/22 15:47 10/25/22 15:48 Temperature 98.4 F Pulse Rate 64 64 64 Respiratory Rate 18 Blood Pressure 94/61 106/69 107/58 L Pulse Oximetry 94 Oxygen Delivery Method Room Air 10/25/22 15:50 10/25/22 16:00 10/25/22 17:30 Temperature 98.0 F 97.7 F Pulse Rate 68 62 64 Respiratory Rate 18 18 Blood Pressure 107/58 L 116/65 111/65 Pulse Oximetry 95 95 Oxygen Delivery Method Room Air Room Air 10/25/22 19:22 10/25/22 20:09 Temperature 98 F 97.7 F Pulse Rate 67 67 Respiratory Rate 15 17 Blood Pressure 100/57 L 109/59 L Pulse Oximetry 97 97 Oxygen Delivery Method Room Air Room Air BMI result Body Mass Index 33.9 Const Other: Appearance: Alert. Oriented X3. No acute distress. Eyes: Pupils equal, round and reactive to light. ENT: Pharynx normal. Neck: Normal inspection. Neck supple. No lymph nodes noted. No crepitus CVS: Normal heart rate and rhythm. Pulses normal. Normal S1 and S2 Respiratory: No respiratory distress. Breath sounds normal. No Wheezing. No ra les Abdomen: Soft and nontender. No rigidity. No distention. Skin: Skin warm and dry. Normal skin color. Normal skin turgor. Extremities: No lower extremity edema. No Lacerations. No Rash Neuro: Oriented X 3. No motor deficit. No sensory deficit. Moving all extremities. No slurred speech. CN 2 through 12 grossly intact Psych: calm, cooperative, normal affect Course Course Course Narrative: -patient's labs pending -orthostatics vitals pending -patient was given 1 dose of p.o. Fioricet, diphenhydramine on meclizine Medications Administered Discontinued Medications Generic Name Dose Route Start Last Admin Trade Name Freq PRN Reason Stop Dose Admin Acetaminophen/Butalbital/Caffeine 1 tab 10/25/22 14:58 10/25/22 15:24 Butalb/Acetamin/Caff 50/325/40 Tablet PO 10/25/22 14:59 1 tab ONCE ONE Administration Diazepam 4 mg 10/25/22 19:34 10/25/22 20:03 Diazepam 2 Mg Tablet PO 10/25/22 19:35 4 mg ONCE ONE Administration Diphenhydramine HCl 50 mg 10/25/22 14:52 10/25/22 15:24 Diphenhydramine Hcl 25 Mg Capsule PO 10/25/22 14:53 50 mg ONCE ONE Administration Meclizine HCl 50 mg 10/25/22 14:52 10/25/22 15:24 Meclizine Hcl 25 Mg Tablet PO 10/25/22 14:53 50 mg ONCE ONE Administration Meclizine HCl 50 mg 10/25/22 19:34 10/25/22 20:03 Meclizine Hcl 25 Mg Tablet PO 10/25/22 19:35 50 mg ONCE ONE Administration Medical Decision Making Medical Decision Making [facility] Narrative: -patient's labs ordered baseline -CT scan of the head shows no acute abnormality -after medication, patient feels better. Drowsy given the medications he received. -patient states that he has been having more difficulty transferring from his wheelchair to the bathroom and to the bed. Patient states that he cannot take care of himself at home there Patient is by himself, not a safe discharge. I discussed the above med and with his pre school manager Alejandro, patient will be staying in the hospital, case management consult pending. Differential Diagnosis Differential Diagnoses: The differential diagnosis associated with the presentation includes (Vertigo, orthostatic hypotension, physical composition) Lab Data 10/25/22 16:37 10/25/22 16:37 Labs: Lab Results 10/25/22 10/25/22 10/25/22 Range/Units 16:37 16:37 16:37 WBC 3.4 L (4.8-10.8) X10*3/uL RBC 4.39 L (4.60-5.80) X10*6/uL Hgb 11.9 L (14.0-18.0) g/dl Hct 37.5 L (42.0-52.0) % MCV 85.4 (80.0-98.0) fL MCH 27.1 (27.0-33.0) pg MCHC 31.7 (31.0-36.0) g/dl RDW 14.9 (11.0-16.0) % Plt Count 244 (160-400) X10*3/uL MPV 10.3 (9.4-12.4) fL Immature Gran % (Auto) 0.9 H (0.0-0.4) % Neut % (Auto) 64.3 (45-73) % Lymph % (Auto) 21.8 (20-40) % [place] % (Auto) 8.3 (2-11) % Eos % (Auto) 3.8 (0-4) % Baso % (Auto) 0.9 (0-2) % Lymph # (Auto) 0.7 L (1.2-4.9) X10*3/uL [place] # (Auto) 0.3 (0.1-1.2) X10*3/uL Eos # (Auto) 0.1 (0.0-0.4) X10*3/uL Baso # (Auto) 0.0 (0.0-0.2) X10*3/uL Abs Immat Gran (auto) 0.03 (0.00-0.03) X10*3/uL Absolute Neuts (auto) 2.2 (2.0-8.3) x10*3/uL Absolute Nucleated RBC 0.000 (0.0-0.012) X10*3/uL Nucleated RBC % (auto) 0.0 (0.0-0.2) /100WBC PT 13.6 H (10.0-13.1) SEC INR 1.2 H (0.9-1.1) Sodium 136 (135-145) mmol/L Potassium 4.3 (3.3-5.1) mmol/L Chloride 97 (96-108) mmol/L Carbon Dioxide 23 (22-29) mmol/L Anion Gap 20 (12-20) BUN 25 H (9-16) mg/dL Creatinine 0.75 (0.5-1.4) mg/dL Estim Creat Clear Calc 96.9 Estimated GFR > 60 POC Glucose (60-115) mg/dL Random Glucose 44 L* (60-115) mg/dL Calcium 9.3 (8.4-10.2) mg/dL Magnesium 1.6 (1.6-2.6) mg/dL Total Bilirubin 0.6 (0.0-1.0) mg/dL Direct Bilirubin 0.3 (0.0-0.5) mg/dL AST 15 (5-37) U/L ALT 10 (0-40) U/L Alkaline Phosphatase 66 (39-117) U/L Troponin I High Sens (<3.5-35.0) ng/L Total Protein 6.3 L (6.5-8.0) g/dL Albumin 3.6 (3.5-5.0) g/dL Urine Color Urine Appearance Urine pH (5.0-9.0) Ur Specific [place] (1.005-1.025) Urine Protein (Neg-Trace) mg/dL Urine Glucose (UA) (Negative) mg/dL Urine Ketones (Negative) mg/dL Urine Blood (Negative) Urine Nitrite (Negative) Ur Leukocyte Esterase (Negative) Ethyl Alcohol mg/dL 05/10/23 05/10/23 05/10/23 Range/Units 16:37 16:38 18:30 WBC (4.8-10.8) X10*3/uL RBC (4.60-5.80) X10*6/uL Hgb (14.0-18.0) g/dl Hct (42.0-52.0) % MCV (80.0-98.0) fL MCH (27.0-33.0) pg MCHC (31.0-36.0) g/dl RDW (11.0-16.0) % Plt Count (160-400) X10*3/uL MPV (9.4-12.4) fL Immature Gran % (Auto) (0.0-0.4) % Neut % (Auto) (45-73) % Lymph % (Auto) (20-40) % [place] % (Auto) (2-11) % Eos % (Auto) (0-4) % Baso % (Auto) (0-2) % Lymph # (Auto) (1.2-4.9) X10*3/uL [place] # (Auto) (0.1-1.2) X10*3/uL Eos # (Auto) (0.0-0.4) X10*3/uL Baso # (Auto) (0.0-0.2) X10*3/uL Abs Immat Gran (auto) (0.00-0.03) X10*3/uL Absolute Neuts (auto) (2.0-8.3) x10*3/uL Absolute Nucleated RBC (0.0-0.012) X10*3/uL Nucleated RBC % (auto) (0.0-0.2) /100WBC PT (10.0-13.1) SEC INR (0.9-1.1) Sodium (135-145) mmol/L Potassium (3.3-5.1) mmol/L Chloride (96-108) mmol/L Carbon Dioxide (22-29) mmol/L Anion Gap (12-20) BUN (9-16) mg/dL Creatinine (0.5-1.4) mg/dL Estim Creat Clear Calc Estimated GFR POC Glucose 108 (60-115) mg/dL Random Glucose (60-115) mg/dL Calcium (8.4-10.2) mg/dL Magnesium (1.6-2.6) mg/dL Total Bilirubin (0.0-1.0) mg/dL Direct Bilirubin (0.0-0.5) mg/dL AST (5-37) U/L ALT (0-40) U/L Alkaline Phosphatase (39-117) U/L Troponin I High Sens < 2.7 (<3.5-35.0) ng/L Total Protein (6.5-8.0) g/dL Albumin (3.5-5.0) g/dL Urine Color Urine Appearance Urine pH (5.0-9.0) Ur Specific [place] (1.005-1.025) Urine Protein (Neg-Trace) mg/dL Urine Glucose (UA) (Negative) mg/dL Urine Ketones (Negative) mg/dL Urine Blood (Negative) Urine Nitrite (Negative) Ur Leukocyte Esterase (Negative) Ethyl Alcohol < 10 mg/dL 10/25/22 10/25/22 Range/Units 19:57 20:01 WBC (4.8-10.8) X10*3/uL RBC (4.60-5.80) X10*6/uL Hgb (14.0-18.0) g/dl Hct (42.0-52.0) % MCV (80.0-98.0) fL MCH (27.0-33.0) pg MCHC (31.0-36.0) g/dl RDW (11.0-16.0) % Plt Count (160-400) X10*3/uL MPV (9.4-12.4) fL Immature Gran % (Auto) (0.0-0.4) % Neut % (Auto) (45-73) % Lymph % (Auto) (20-40) % [place] % (Auto) (2-11) % Eos % (Auto) (0-4) % Baso % (Auto) (0-2) % Lymph # (Auto) (1.2-4.9) X10*3/uL [place] # (Auto) (0.1-1.2) X10*3/uL Eos # (Auto) (0.0-0.4) X10*3/uL Baso # (Auto) (0.0-0.2) X10*3/uL Abs Immat Gran (auto) (0.00-0.03) X10*3/uL Absolute Neuts (auto) (2.0-8.3) x10*3/uL Absolute Nucleated RBC (0.0-0.012) X10*3/uL Nucleated RBC % (auto) (0.0-0.2) /100WBC PT (10.0-13.1) SEC INR (0.9-1.1) Sodium (135-145) mmol/L Potassium (3.3-5.1) mmol/L Chloride (96-108) mmol/L Carbon Dioxide (22-29) mmol/L Anion Gap (12-20) BUN (9-16) mg/dL Creatinine (0.5-1.4) mg/dL Estim Creat Clear Calc Estimated GFR POC Glucose 142 H (60-115) mg/dL Random Glucose (60-115) mg/dL Calcium (8.4-10.2) mg/dL Magnesium (1.6-2.6) mg/dL Total Bilirubin (0.0-1.0) mg/dL Direct Bilirubin (0.0-0.5) mg/dL AST (5-37) U/L ALT (0-40) U/L Alkaline Phosphatase (39-117) U/L Troponin I High Sens (<3.5-35.0) ng/L Total Protein (6.5-8.0) g/dL Albumin (3.5-5.0) g/dL Urine Color Yellow Urine Appearance Clear Urine pH 5.5 (5.0-9.0) Ur Specific [place] 1.015 (1.005-1.025) Urine Protein Negative (Neg-Trace) mg/dL Urine Glucose (UA) 500 H (Negative) mg/dL Urine Ketones 15 (Negative) mg/dL Urine Blood Negative (Negative) Urine Nitrite Negative (Negative) Ur Leukocyte Esterase Negative (Negative) Ethyl Alcohol mg/dL Discharge Plan Discharge Clinical Impression: Weakness, At high risk for falls Patient Disposition: Still a Patient Prescriptions: No Action gabapentin [Neurontin] 300 mg capsule 300 mg PO TID Qty: 60 0RF cholecalciferol (vitamin D3) 1,250 mcg (50,000 unit) capsule 1,250 mcg PO QWEEK Qty: 12 1RF miscellaneous medical supply Misc 1 ea miscellaneous DAILY 360 Days Qty: 1 0RF Rx Instructions: 1 mattress for hospital bed, patient's height: 5'5 , weight: 201 lb, BMI 33.4 hydralazine 10 mg tablet 10 mg PO BID Qty: 60 5RF finasteride 5 mg tablet 5 mg PO DAILY Qty: 30 5RF omeprazole 20 mg capsule,delayed release(DR/EC) 20 mg PO DAILY Qty: 90 1RF metoprolol succinate 100 mg tablet extended release 24 hr 100 mg PO QPM Qty: 90 1RF paroxetine HCl 20 mg tablet 20 mg PO BEDTIME Qty: 90 1RF triamcinolone acetonide 0.025 % cream 1 appl topical BID Qty: 15 0RF losartan 50 mg tablet 50 mg PO BID Qty: 180 1RF metformin 500 mg tablet 500 mg PO BID Qty: 180 1RF Jardiance 25 mg tablet 25 mg PO DAILY Qty: 90 1RF tamsulosin 0.4 mg capsule 0.8 mg PO BEDTIME Qty: 60 1RF gemfibrozil 600 mg tablet 600 mg PO BID Qty: 60 5RF valacyclovir [Valtrex] 1 gram tablet 1,000 mg PO TID 7 Days Qty: 21 0RF phenobarbital 32.4 mg tablet 32.4 mg PO QID levetiracetam [Keppra] 250 mg tablet 250 mg PO BID ketoconazole 2 % cream 1 appl topical BID Qty: 30 0RF mecobalamin (vitamin B12) 1,000 mcg tablet,disintegrating 1,000 mcg sublingual DAILY Qty: 90 1RF Rx Instructions: place tablet under tongue and allow to dissolve for at least30 secs before swallowing sumatriptan succinate 50 mg tablet 50 mg PO
[2022-10-25] MEDS: diphenhydrAMINE HCL 25 MG CAPSULE 50 MG PO (15:24)
[2022-10-25] MEDS: Butalb/Acetamin/Caff 50/325/40 TABLET 1 TAB PO (15:24)
[2022-10-25] MEDS: Meclizine HCl 25 MG TABLET 50 MG PO ×2 (15:24→20:03)
--- NOTE | 2022-10-25 15:25 | PC.NURSE ---
patient a&ox3, vss, nuclear monitoring technician intact-nsr ekg performed, pt medicated for dizziness, will ask tech to do orthostats, pt awaiting ct scan, will continue to monitor
[2022-10-25 16:46] LABS: MANUAL DIFF FLAG NO
--- NOTE | 2022-10-25 16:55 | PC.NURSE ---
patient a&ox3, oob to commode with assist, pt c/o 11/25 headache, nuclear monitoring technician intact nsr, call beach within reach, will continue to monitor
[2022-10-25 17:00] LABS: Basophils Percent Auto 0.9 % (0-2); Eosinophils Absolute Auto 0.1 X10*3/uL (0.0-0.4); Eosinophils Percent Auto 3.8 % (0-4); Hematocrit 37.5 % (42.0-52.0); Hemoglobin 11.9 g/dl (14.0-18.0); Imm Gran Abs Auto 0.03 X10*3/uL (0.00-0.03); Imm Gran Pct Auto 0.9 % (0.0-0.4); Lymphocytes Absolute Auto 0.7 X10*3/uL (1.2-4.9); Lymphocytes Percent Auto 21.8 % (20-40); Mean Corpuscular HGB Conc 31.7 g/dl (31.0-36.0); Mean Corpuscular Hemoglobin 27.1 pg (27.0-33.0); Mean Corpuscular Volume 85.4 fL (80.0-98.0); Mean Platelet Volume 10.3 fL (9.4-12.4); Monocytes Absolute Auto 0.3 X10*3/uL (0.1-1.2); Monocytes Percent Auto 8.3 % (2-11); Neutrophils Absolute Auto 2.2 x10*3/uL (2.0-8.3); Neutrophils Percent Auto 64.3 % (45-73); Platelet Count 244 X10*3/uL (160-400); Red Blood Count 4.39 X10*6/uL (4.60-5.80); Red Cell Distribution Width 14.9 % (11.0-16.0); White Blood Count 3.4 X10*3/uL (4.8-10.8)
[2022-10-25 17:01] LABS: INTERNATIONAL NORM RATIO 1.2 (0.9-1.1); Prothrombin Time 13.6 SEC (10.0-13.1)
[2022-10-25 17:13] LABS: Ethanol < 10 mg/dL
[2022-10-25 17:18] LABS: Alanine Aminotransferase 10 U/L (0-40); Albumin Level 3.6 g/dL (3.5-5.0); Alkaline Phosphatase 66 U/L (39-117); Anion Gap 20 (12-20); Aspartate Amino Transferase 15 U/L (5-37); Bilirubin Direct 0.3 mg/dL (0.0-0.5); Bilirubin Total 0.6 mg/dL (0.0-1.0); Blood Urea Nitrogen 25 mg/dL (9-16); Calcium 9.3 mg/dL (8.4-10.2); Carbon Dioxide 23 mmol/L (22-29); Chloride 97 mmol/L (96-108); Creatinine Clr Calc Pharmacy 96.9; Estimated Glomerular Filt Rate > 60; Glucose Random 44 mg/dL (60-115); Magnesium 1.6 mg/dL (1.6-2.6); Potassium 4.3 mmol/L (3.3-5.1); Sodium 136 mmol/L (135-145); Total Protein 6.3 g/dL (6.5-8.0)
[2022-10-25 17:18] LABS: Troponin-I High Sensitivity < 2.7 ng/L (<3.5-35.0)
--- NOTE | 2022-10-25 17:33 | PC.NURSE ---
patient was in ct scan when lab called stating his blood sugar was 44, provider notified, pt returned to room patient remained a&ox3, pt was given apple juice with sugar packets and a peanut butter and jelly sandwich, pt states he hasnt been eating much lately, will recheck poc shortly
[2022-10-25 18:34] LABS: Glucose, Whole Blood 108 mg/dL (60-115)
--- NOTE | 2022-10-25 18:44 | PC.NURSE ---
pt continues to be a&ox3, continues to c/o dizziness and headache, repeat poc performed wnl, provider notified call beach within reach, will continue to monitor
[2022-10-25 20:02] LABS: Glucose, Whole Blood 142 mg/dL (60-115)
[2022-10-25] MEDS: diazePAM 2 MG TABLET 4 MG PO (20:03)
--- NOTE | 2022-10-25 20:04 | PC.NURSE ---
medicated per Aug, Noticed MARA Ramirez
[2022-10-25 20:10] LABS: Appearance Urine Clear; Color Urine Yellow; Glucose Urine UA 500 mg/dL (Negative); Leukocyte Esterase Urine Negative (Negative); Nitrite Urine Negative (Negative); PH 5.5 (5.0-9.0); Specific Gravity - Urine 1.015 (1.005-1.025); Urine Blood Negative (Negative); Urine Ketones 15 mg/dL (Negative); Urine Protein Negative (Neg-Trace)
--- NOTE | 2022-10-25 21:54 | MHC.CM.ED ---
Addendum entered by Venessa Garsia 10/25/22 22:19: Priya tells CM that she can get her brother's medications at [facility] if needed. Original Note: CM met with patient at the request of Dr. Brunner. Pt appears A&Ox4. Knows where he is and why. Can tell CM about his family assistance and Dr. de la cruz. Can tell me he falls frequently, that he has M.D. and Cerebral palsy and that his neurologist, Dr. Hernandez tells him he will only get weaker. Pt uses an electric wheelchair and lives alone in elderly housing. Patient tells CM he has a [employer] that comes in every other week and no other help. States he dresses and showers himself. Has food delivered from [employer] and has his meds delivered from [facility] through [facility], but that service is ending this month and he does not know how he will get his medications next month. CM asked patient what his plan was for the future and patient states he will probably need to live in a senior living, but feels he needs to get on a waiting list. CM explained that if he cannot get more services in the home to help him, like [employer], then he probably needs to live in a senior living. Pt has Medicaid/Medicare. Pt had J&J, but no booster. Pt states his siblings help, but they have their own families. HCP is on file. HCP#1 Erwin Eduardo ([phone]) and HCP#2/sister Priya Berry ([phone] and h- [phone]). Pt gave CM permission to speak with his sister. Pt is agreeable to STR, but only at [facility]. States he will go home if PT not recommended or if [facility] doesn't have a bed. CM spoke with sister, Pryia. Priya verified above information, believes her brother can make his decisions, but feels he is going downhill. Feels his mental capacity is declining and is forgetful. States he falls at least 3-4 times a week and uses his life line to call 911 for assistance getting up. Priya tells CM that he will not eat, if she doesn't bring him food. and she is worried that he is not safe at home. She agrees that he may need LTC, but states that he is stubborn and can make his decisions. Discussed matter of capacity and that if he did not have capacity, then as his HCP, she could make decisions, but ROMARIO, Priya and Dr. Brunner feel the patient has capacity at this time. Priya will come to [facility] tomorrow to speak with her brother. D/C plan: PT with possible STR, but only to [facility] per patient. No referral placed at this time. Pt may decide to go home. If so, CM will file with Elder Protective Services for self neglect. If patient goes home, will need BLS transport.
--- NOTE | 2022-10-25 22:56 | PC.NURSE ---
Patient alert and oriented x3. Vital signs stable. POC 142. Patient assisted to commode. Continues to report dizziness. Provider is aware. Call beach within reach. Will continue to follow plan of care
--- NOTE | 2022-10-25 23:12 | PC.NURSE ---
Nurse to Nurse report given to Mg in overflow. Patient to be transported to overflow bed 2 by GENA Heredia
--- NOTE | 2022-10-25 23:40 | PC.NURSE ---
pt arrived via stretcher from the main ED. Pt assessed, denies any pain
[2022-10-26 06:00] VITALS: BP 104/70; PULSE 60; RESP 16; TEMP 36.7; O2SAT 96
--- NOTE | 2022-10-26 06:19 | MHC.EDTECH ---
PATIENT SLEPT MOST OF THE NIGHT ,550 ML OUTPUT EMPTY .
[2022-10-26 07:41] LABS: Glucose, Whole Blood 76 mg/dL (60-115)
--- NOTE | 2022-10-26 08:46 | PHA.MEDREC ---
Pharmacy Consult ? Medication Reconciliation Pharmacy has completed the medication reconciliation. Patient confirmed all medications. Apple Gu, IsiD
--- NOTE | 2022-10-26 08:49 | MHC.CM.ED ---
Addendum entered by Tameka Delgado 10/26/22 14:51: Patient's sister, Priya, made aware via telephone at [phone]. Addendum entered by Tameka Delgado 10/26/22 10:30: [facility] able [facility] a bed. Patient can leave at 1130am. Reynold GORDON booked. [facility] with chart. Patient, Adriana TERRY and Marisabel BOSE aware. Continue to monitor for d/c needs. Original Note: Patient currently in ER overflow. Physical therapy eval completed. Short term rehab is recommended. [facility] patient[facility] choice. Referral made via [facility]. Continue to monitor for d/c needs.
[2022-10-26 10:15] LABS: COVID-19 Test Negative (Negative); IDNOW Serial# BCCEAD1C
--- NOTE | 2022-10-26 11:22 | PC.NURSE ---
patient a&ox3, oob sitting in chair, pt offers no complaints at this time, ate late breakfast, pt awaiting EMS ride at 1230 to [facility] will continue to monitor.
== END 2022-10-26 11:43 ==
PROVIDERS: Physician Assistant; Emergency Provider Emergency Medicine; PCP Internal Medicine
DX: R53.1 Weakness (principal); R51.9 Headache, unspecified; R29.6 Repeated falls; Z91.81 History of falling; G80.8 Other cerebral palsy; E11.9 Type 2 diabetes mellitus without complications; I10 Essential (primary) hypertension; Z99.3 Dependence on wheelchair; Z79.899 Other long term (current) drug therapy; Z79.84 Long term (current) use of oral hypoglycemic drugs; Z20.822 Contact with and (suspected) exposure to COVID-19
CPT/HCPCS: 36415; 70450; 80048; 80076; 80307; 81003; 82947; 83735; 84484; 85025; 85610; 87635; 93005; 97162; 99285

== ENCOUNTER 2022-11-11 14:15 | Emergency (ER) | payer MEDICARE, MEDICAID, SELFPAY ==
[2022-11-11 14:46] VITALS: BP 108/62; BP 118/80; PULSE 66; PULSE 68; RESP 19; TEMP 36.6; O2SAT 96; O2SAT 97; BMI 84.3
--- NOTE | 2022-11-11 14:52 | ED_ITS ---
HPI - Seizure General Chief Complaint: Seizure Stated Complaint: Unwitnessed seizure per EMS Time Seen by Provider: 11/11/22 14:42 Source: patient Limitations: no limitations History of Present Illness HPI Narrative: Patient history of cerebral palsy with muscular dystrophy nonambulatory with contracted posture off the right upper extremity electric wheelchair bound from rehab with history of seizures on Keppra 250 mg twice daily get seizure almost once a month today he got 2 seizures [id number] lasted for 2 minutes within 1 hour patient fair felt it does not remember exactly not witnessed Related Data Home Medications Medication Instructions Recorded Confirmed phenobarbital 32.4 mg tablet 32.4 mg PO BID@0900,1200 05/25/20 10/26/22 levetiracetam 250 mg tablet 250 mg PO BID 08/23/20 10/26/22 (Keppra) sumatriptan succinate 50 mg tablet 50 mg PO DAILY PRN Migraine 09/13/21 10/26/22 Headache cholecalciferol (vitamin D3) 1,250 1,250 mcg PO MO 10/26/22 10/26/22 mcg (50,000 unit) capsule phenobarbital 32.4 mg tablet 64.8 mg PO BEDTIME 10/26/22 10/26/22 triamcinolone acetonide 0.025 % 1 appl topical BID PRN Rash 10/26/22 10/26/22 topical cream Previous Rx's Medication Instructions Recorded mecobalamin (vitamin B12) 1,000 1,000 mcg sublingual DAILY #90 tabs 09/08/21 mcg disintegrating tablet,sublingual finasteride 5 mg tablet 5 mg PO DAILY #30 tabs 04/04/22 hydralazine 10 mg tablet 10 mg PO BID #60 tabs 04/04/22 paroxetine HCl 20 mg tablet 20 mg PO BEDTIME #90 tabs 07/25/22 empagliflozin 25 mg tablet 25 mg PO DAILY #90 tabs 08/03/22 (Jardiance) losartan 50 mg tablet 50 mg PO BID #180 tabs 08/03/22 gemfibrozil 600 mg tablet 600 mg PO BID #60 tabs 11/09/22 tamsulosin 0.4 mg capsule 0.8 mg PO BEDTIME #60 caps 11/09/22 metformin 500 mg tablet 500 mg PO BID #180 tabs 11/10/22 metoprolol succinate 100 mg 100 mg PO QPM #90 tabs 11/10/22 tablet,extended release 24 hr omeprazole 20 mg capsule,delayed 20 mg PO DAILY #90 caps 11/10/22 release Allergies Allergy/AdvReac Type Severity Reaction Status Date / Time lisinopril [LISINOPRIL] Allergy Unknown UNKNOWN Verified 10/12/22 09:12 penicillin V Allergy Unknown too long Verified 10/12/22 09:12 ago to remember Penicillins [PENICILLINS] Allergy Unknown to long Verified 10/12/22 09:12 ago to remember Review of Systems Review of Systems: Yes all other systems are reviewed and are negative [facility] Past Medical History Medical History Benign prostate hyperplasia 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 Essential (primary) hypertension GERD (gastroesophageal reflux disease) Renal cysts, acquired, bilateral Seizure Surgical History History of cataract surgery History of fasciotomy History of orthopedic surgery Family History Family History Father Myocardial infarction Mother Acute CVA (cerebrovascular accident) Brother In good health Brother In good health Sister In good health Sister In good health Social History Social History Housing: Apartment Alcohol intake: never Patient Tobacco Use Status: Former Tobacco user Smoked in Last 30 Days: No e-Cigarette/Vaping Use: Never Used Second Hand Smoke Exposure: No Use of substances other than those prescribed or required for medical reasons: No Advance Directives: Yes Advance Directives on File: Yes Advance Directives Date on File: 10/26/22 service: No Current occupational status: disabled Cognitive needs: Yes (wheelchair) Hearing needs: No Vision needs: Yes (glasses) Physical Exam Vital Signs: Vital Signs: Last Vital Signs Temp 97.8 F 11/11/22 14:46 Pulse 68 11/11/22 14:46 Resp 19 11/11/22 14:46 BP 108/62 11/11/22 14:46 Pulse Ox 96 11/11/22 14:46 O2 Del Method Room Air 11/11/22 14:46 BMI result Body Mass Index 84.3 Appearance: Alert. Oriented X3. No acute distress. Eyes: PERRLA, No Nystagmus ENT: Pharynx normal. Oral Mucosa moist AT NC Neck: Normal inspection. Neck supple. CVS: Normal heart rate and rhythm. Pulses normal. Respiratory: No respiratory distress. Equal air entry bilateral, no wheezing/rales/rhonchi Abdomen: Soft and nontender. Bowel sounds are present, no mass palpable, no CVA tenderness Skin: Skin warm and dry. Normal skin color. Normal skin turgor. Extremities: No lower extremity edema. No calf tenderness Neuro: Oriented X 3. Contracted posture right upper, quadriplegic with limited movements of L upper extremity Medications Administered Discontinued Medications Generic Name Dose Route Start Last Admin Trade Name Freq PRN Reason Stop Dose Admin Levetiracetam 500 mg 11/11/22 15:05 11/11/22 15:18 Levetiracetam 500 Mg Tablet PO 11/11/22 15:06 500 mg ONCE ONE Administration Medical Decision Making Lab Data 11/11/22 15:29 11/11/22 15:50 Labs: Lab Results 11/11/22 11/11/22 Range/Units 15:29 15:50 WBC 3.8 L (4.8-10.8) X10*3/uL RBC 3.68 L (4.60-5.80) X10*6/uL Hgb 10.3 L (14.0-18.0) g/dl Hct 32.7 L (42.0-52.0) % MCV 88.9 (80.0-98.0) fL MCH 28.0 (27.0-33.0) pg MCHC 31.5 (31.0-36.0) g/dl RDW 18.6 H (11.0-16.0) % Plt Count 188 (160-400) X10*3/uL MPV 10.5 (9.4-12.4) fL Immature Gran % (Auto) 1.3 H (0.0-0.4) % Neut % (Auto) 64.1 (45-73) % Lymph % (Auto) 17.7 L (20-40) % Hemphill % (Auto) 9.0 (2-11) % Eos % (Auto) 7.1 H (0-4) % Baso % (Auto) 0.8 (0-2) % Lymph # (Auto) 0.7 L (1.2-4.9) X10*3/uL Hemphill # (Auto) 0.3 (0.1-1.2) X10*3/uL Eos # (Auto) 0.3 (0.0-0.4) X10*3/uL Baso # (Auto) 0.0 (0.0-0.2) X10*3/uL Abs Immat Gran (auto) 0.05 H (0.00-0.03) X10*3/uL Absolute Neuts (auto) 2.4 (2.0-8.3) x10*3/uL Absolute Nucleated RBC 0.000 (0.0-0.012) X10*3/uL Nucleated RBC % (auto) 0.0 (0.0-0.2) /100WBC Sodium 137 (135-145) mmol/L Potassium 5.0 (3.3-5.1) mmol/L Chloride 101 (96-108) mmol/L Carbon Dioxide 30 H (22-29) mmol/L Anion Gap 11 L (12-20) BUN 16 (9-16) mg/dL Creatinine 0.84 (0.5-1.4) mg/dL Estim Creat Clear Calc 146.3 Estimated GFR > 60 Random Glucose 364 H* (60-115) mg/dL Calcium 9.0 (8.4-10.2) mg/dL Magnesium 2.2 (1.6-2.6) mg/dL Total Bilirubin 0.3 (0.0-1.0) mg/dL AST 22 (5-37) U/L ALT 25 (0-40) U/L Alkaline Phosphatase 91 (39-117) U/L Total Protein 6.3 L (6.5-8.0) g/dL Albumin 3.4 L (3.5-5.0) g/dL Discharge Plan Discharge Clinical Impression: Epileptic seizure Patient Disposition: Xfer LTC Instructions: Epilepsy (ED) Additional Instructions: Continue your seizure medications and follow up with neurologist Prescriptions: No Action hydralazine 10 mg tablet 10 mg PO BID Qty: 60 5RF finasteride 5 mg tablet 5 mg PO DAILY Qty: 30 5RF paroxetine HCl 20 mg tablet 20 mg PO BEDTIME Qty: 90 1RF losartan 50 mg tablet 50 mg PO BID Qty: 180 1RF Jardiance 25 mg tablet 25 mg PO DAILY Qty: 90 1RF tamsulosin 0.4 mg capsule 0.8 mg PO BEDTIME Qty: 60 1RF gemfibrozil 600 mg tablet 600 mg PO BID Qty: 60 5RF metformin 500 mg tablet 500 mg PO BID Qty: 180 1RF metoprolol succinate 100 mg tablet extended release 24 hr 100 mg PO QPM Qty: 90 1RF omeprazole 20 mg capsule,delayed release(DR/EC) 20 mg PO DAILY Qty: 90 1RF phenobarbital 32.4 mg tablet 64.8 mg PO BEDTIME triamcinolone acetonide 0.025 % cream 1 appl topical BID PRN (Reason: Rash) cholecalciferol (vitamin D3) 1,250 mcg (50,000 unit) capsule 1,250 mcg PO MO phenobarbital 32.4 mg tablet 32.4 mg PO BID@0900,1200 levetiracetam [Keppra] 250 mg tablet 250 mg PO BID mecobalamin (vitamin B12) 1,000 mcg tablet,disintegrating 1,000 mcg sublingual DAILY Qty: 90 1RF Rx Instructions: place tablet under tongue and allow to dissolve for at least30 secs before swallowing sumatriptan succinate 50 mg tablet 50 mg PO DAILY PRN (Reason: Migraine Headache) Interventions: ED Discharge Assessment Last Done: 11/11/22 17:18 Discharge Date/Time: 11/11/22 17:28
[2022-11-11] MEDS: levETIRAcetam 500 MG TABLET PO (15:18)
[2022-11-11 15:32] LABS: MANUAL DIFF FLAG NO
[2022-11-11 15:33] LABS: Basophils Percent Auto 0.8 % (0-2); Eosinophils Absolute Auto 0.3 X10*3/uL (0.0-0.4); Eosinophils Percent Auto 7.1 % (0-4); Hematocrit 32.7 % (42.0-52.0); Hemoglobin 10.3 g/dl (14.0-18.0); Imm Gran Abs Auto 0.05 X10*3/uL (0.00-0.03); Imm Gran Pct Auto 1.3 % (0.0-0.4); Lymphocytes Absolute Auto 0.7 X10*3/uL (1.2-4.9); Lymphocytes Percent Auto 17.7 % (20-40); Mean Corpuscular HGB Conc 31.5 g/dl (31.0-36.0); Mean Corpuscular Volume 88.9 fL (80.0-98.0); Mean Platelet Volume 10.5 fL (9.4-12.4); Monocytes Absolute Auto 0.3 X10*3/uL (0.1-1.2); Neutrophils Absolute Auto 2.4 x10*3/uL (2.0-8.3); Neutrophils Percent Auto 64.1 % (45-73); Platelet Count 188 X10*3/uL (160-400); Red Blood Count 3.68 X10*6/uL (4.60-5.80); Red Cell Distribution Width 18.6 % (11.0-16.0); White Blood Count 3.8 X10*3/uL (4.8-10.8)
[2022-11-11 16:33] LABS: Alanine Aminotransferase 25 U/L (0-40); Albumin Level 3.4 g/dL (3.5-5.0); Alkaline Phosphatase 91 U/L (39-117); Anion Gap 11 (12-20); Aspartate Amino Transferase 22 U/L (5-37); Bilirubin Total 0.3 mg/dL (0.0-1.0); Blood Urea Nitrogen 16 mg/dL (9-16); Carbon Dioxide 30 mmol/L (22-29); Chloride 101 mmol/L (96-108); Creatinine Clr Calc Pharmacy 146.3; Estimated Glomerular Filt Rate > 60; Glucose Random 364 mg/dL (60-115); Magnesium 2.2 mg/dL (1.6-2.6); Sodium 137 mmol/L (135-145); Total Protein 6.3 g/dL (6.5-8.0)
--- NOTE | 2022-11-11 17:26 | PC.NURSE ---
left a message on supervisors line as no one picked up phone on patient's unit regarding high glucose of 364 and no insulin given as ambulance had left before anyone could administer the insulin.
== END 2022-11-11 17:28 ==
PROVIDERS: Emergency Provider Internal Medicine
DX: G40.909 Epilepsy, unspecified, not intractable, without status epilepticus (principal); E11.9 Type 2 diabetes mellitus without complications; I10 Essential (primary) hypertension; G80.8 Other cerebral palsy; Z79.899 Other long term (current) drug therapy; Z79.84 Long term (current) use of oral hypoglycemic drugs
CPT/HCPCS: 36415; 80053; 83735; 85025; 99283; 99284

== ENCOUNTER 2023-01-01 06:15 | Outpatient (REF) | payer MEDICARE, MEDICAID, SELFPAY ==
[2023-01-01 05:43] LABS: MANUAL DIFF FLAG NO
[2023-01-01 05:53] LABS: Basophils Absolute Auto 0.1 X10*3/uL (0.0-0.2); Basophils Percent Auto 1.2 % (0-2); Eosinophils Absolute Auto 0.5 X10*3/uL (0.0-0.4); Eosinophils Percent Auto 10.5 % (0-4); Hematocrit 38.9 % (42.0-52.0); Hemoglobin 12.2 g/dl (14.0-18.0); Imm Gran Abs Auto 0.04 X10*3/uL (0.00-0.03); Imm Gran Pct Auto 0.9 % (0.0-0.4); Lymphocytes Percent Auto 23.3 % (20-40); Mean Corpuscular HGB Conc 31.4 g/dl (31.0-36.0); Mean Corpuscular Hemoglobin 27.7 pg (27.0-33.0); Mean Corpuscular Volume 88.2 fL (80.0-98.0); Mean Platelet Volume 11.7 fL (9.4-12.4); Monocytes Absolute Auto 0.6 X10*3/uL (0.1-1.2); Monocytes Percent Auto 12.8 % (2-11); Neutrophils Absolute Auto 2.2 x10*3/uL (2.0-8.3); Neutrophils Percent Auto 51.3 % (45-73); Platelet Count 180 X10*3/uL (160-400); Red Blood Count 4.41 X10*6/uL (4.60-5.80); Red Cell Distribution Width 14.5 % (11.0-16.0); White Blood Count 4.3 X10*3/uL (4.8-10.8)
[2023-01-01 06:15] LABS: Anion Gap 16 (12-20); Blood Urea Nitrogen 20 mg/dL (9-16); Calcium 9.5 mg/dL (8.4-10.2); Carbon Dioxide 23 mmol/L (22-29); Chloride 99 mmol/L (96-108); Estimated Glomerular Filt Rate > 60; Glucose Random 339 mg/dL (60-115); Potassium 3.8 mmol/L (3.3-5.1); Sodium 134 mmol/L (135-145)
== END 2023-01-01 06:16 | disposition home or self-care (01) ==
LOC: HO.MMNH2L 06:15
PROVIDERS: Visit Provider Family Medicine
DX: E11.9 Type 2 diabetes mellitus without complications (principal); D64.9 Anemia, unspecified
CPT/HCPCS: 36415; 80048; 85025

== ENCOUNTER 2023-01-08 06:03 | Outpatient (REF) | payer MEDICARE, MEDICAID, SELFPAY ==
[2023-01-08 05:59] LABS: MANUAL DIFF FLAG NO
[2023-01-08 06:42] LABS: Basophils Absolute Auto 0.1 X10*3/uL (0.0-0.2); Basophils Percent Auto 1.2 % (0-2); Eosinophils Absolute Auto 0.4 X10*3/uL (0.0-0.4); Eosinophils Percent Auto 7.9 % (0-4); Hematocrit 38.2 % (42.0-52.0); Hemoglobin 12.5 g/dl (14.0-18.0); Imm Gran Abs Auto 0.06 X10*3/uL (0.00-0.03); Imm Gran Pct Auto 1.2 % (0.0-0.4); Lymphocytes Absolute Auto 1.1 X10*3/uL (1.2-4.9); Lymphocytes Percent Auto 22.2 % (20-40); Mean Corpuscular HGB Conc 32.7 g/dl (31.0-36.0); Mean Corpuscular Volume 85.5 fL (80.0-98.0); Mean Platelet Volume 11.5 fL (9.4-12.4); Monocytes Absolute Auto 0.5 X10*3/uL (0.1-1.2); Monocytes Percent Auto 10.2 % (2-11); Neutrophils Absolute Auto 2.8 x10*3/uL (2.0-8.3); Neutrophils Percent Auto 57.3 % (45-73); Platelet Count 194 X10*3/uL (160-400); Red Blood Count 4.47 X10*6/uL (4.60-5.80); Red Cell Distribution Width 14.2 % (11.0-16.0); White Blood Count 4.8 X10*3/uL (4.8-10.8)
[2023-01-08 07:33] LABS: Anion Gap 15 (12-20); Blood Urea Nitrogen 21 mg/dL (9-16); Calcium 9.4 mg/dL (8.4-10.2); Carbon Dioxide 22 mmol/L (22-29); Chloride 101 mmol/L (96-108); Estimated Glomerular Filt Rate > 60; Potassium 3.9 mmol/L (3.3-5.1); Sodium 134 mmol/L (135-145)
[2023-01-08 07:40] LABS: Glucose Random 456 mg/dL (60-115)
== END 2023-01-08 06:04 | disposition home or self-care (01) ==
LOC: HO.MMNH2L 06:03
PROVIDERS: Visit Provider Family Medicine
DX: E11.9 Type 2 diabetes mellitus without complications (principal); D64.9 Anemia, unspecified
CPT/HCPCS: 36415; 80048; 85025

== ENCOUNTER 2023-01-15 06:16 | Outpatient (REF) | payer MEDICARE, MEDICAID, SELFPAY ==
[2023-01-15 06:03] LABS: MANUAL DIFF FLAG NO
[2023-01-15 06:37] LABS: Basophils Percent Auto 0.7 % (0-2); Eosinophils Absolute Auto 0.4 X10*3/uL (0.0-0.4); Eosinophils Percent Auto 9.6 % (0-4); Hematocrit 39.8 % (42.0-52.0); Hemoglobin 12.4 g/dl (14.0-18.0); Imm Gran Abs Auto 0.03 X10*3/uL (0.00-0.03); Imm Gran Pct Auto 0.7 % (0.0-0.4); Lymphocytes Percent Auto 22.9 % (20-40); Mean Corpuscular HGB Conc 31.2 g/dl (31.0-36.0); Mean Corpuscular Hemoglobin 27.6 pg (27.0-33.0); Mean Corpuscular Volume 88.4 fL (80.0-98.0); Mean Platelet Volume 11.7 fL (9.4-12.4); Monocytes Absolute Auto 0.5 X10*3/uL (0.1-1.2); Monocytes Percent Auto 11.5 % (2-11); Neutrophils Absolute Auto 2.4 x10*3/uL (2.0-8.3); Neutrophils Percent Auto 54.6 % (45-73); Platelet Count 228 X10*3/uL (160-400); White Blood Count 4.4 X10*3/uL (4.8-10.8)
[2023-01-15 06:49] LABS: Anion Gap 19 (12-20); Blood Urea Nitrogen 23 mg/dL (9-16); Calcium 9.9 mg/dL (8.4-10.2); Carbon Dioxide 22 mmol/L (22-29); Chloride 99 mmol/L (96-108); Estimated Glomerular Filt Rate > 60; Potassium 4.3 mmol/L (3.3-5.1); Sodium 136 mmol/L (135-145)
[2023-01-15 07:22] LABS: Glucose Random 414 mg/dL (60-115)
== END 2023-01-15 06:17 | disposition home or self-care (01) ==
LOC: HO.MMNH2L 06:16
PROVIDERS: Visit Provider Family Medicine
DX: E11.9 Type 2 diabetes mellitus without complications (principal); D64.9 Anemia, unspecified
CPT/HCPCS: 36415; 80048; 85025

== ENCOUNTER 2023-01-22 05:59 | Outpatient (REF) | payer MEDICARE, MEDICAID, SELFPAY ==
[2023-01-22 05:55] LABS: MANUAL DIFF FLAG NO
[2023-01-22 06:17] LABS: Basophils Absolute Auto 0.1 X10*3/uL (0.0-0.2); Basophils Percent Auto 1.3 % (0-2); Eosinophils Absolute Auto 0.4 X10*3/uL (0.0-0.4); Hematocrit 42.6 % (42.0-52.0); Hemoglobin 13.3 g/dl (14.0-18.0); Imm Gran Abs Auto 0.03 X10*3/uL (0.00-0.03); Imm Gran Pct Auto 0.7 % (0.0-0.4); Lymphocytes Percent Auto 21.5 % (20-40); Mean Corpuscular HGB Conc 31.2 g/dl (31.0-36.0); Mean Corpuscular Hemoglobin 27.9 pg (27.0-33.0); Mean Corpuscular Volume 89.5 fL (80.0-98.0); Mean Platelet Volume 11.6 fL (9.4-12.4); Monocytes Absolute Auto 0.5 X10*3/uL (0.1-1.2); Monocytes Percent Auto 11.6 % (2-11); Neutrophils Absolute Auto 2.5 x10*3/uL (2.0-8.3); Neutrophils Percent Auto 55.9 % (45-73); Platelet Count 282 X10*3/uL (160-400); Red Blood Count 4.76 X10*6/uL (4.60-5.80); Red Cell Distribution Width 13.9 % (11.0-16.0); White Blood Count 4.6 X10*3/uL (4.8-10.8)
[2023-01-22 06:45] LABS: Anion Gap 20 (12-20); Blood Urea Nitrogen 27 mg/dL (9-16); Calcium 9.9 mg/dL (8.4-10.2); Carbon Dioxide 24 mmol/L (22-29); Chloride 94 mmol/L (96-108); Estimated Glomerular Filt Rate 55; Potassium 4.5 mmol/L (3.3-5.1); Sodium 133 mmol/L (135-145)
[2023-01-22 07:27] LABS: Glucose Random 522 mg/dL (60-115)
== END 2023-01-22 06:00 | disposition home or self-care (01) ==
LOC: HO.MMNH2L 05:59
PROVIDERS: Visit Provider Family Medicine
DX: E11.9 Type 2 diabetes mellitus without complications (principal); D64.9 Anemia, unspecified
CPT/HCPCS: 36415; 80048; 85025

== ENCOUNTER 2023-03-01 09:46 | Outpatient (AMB) | payer MEDICARE, MEDICAID, SELFPAY ==
--- NOTE | 2023-03-01 09:35 | A.OFFPC_ITS ---
Intake Visit Reasons: [facility] ED f/u02/06/23 Intake Note: Patient is here for hospital discharge follow up. Patient was discharged from [facility] on 02/06/23. 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 per policy Accompanied by: Self / Same As Patient Allergies lisinopril [LISINOPRIL] Allergy (Unknown, Verified 03/10/23 10:17) UNKNOWN penicillin V Allergy (Unknown, Verified 03/10/23 10:17) too long ago to remember Penicillins [PENICILLINS] Allergy (Unknown, Verified 03/10/23 10:17) to long ago to remember Medication List - Last Reconciled 03/10/23 by Luis Fernando Garcia MD cholecalciferol (vitamin D3) 1,250 mcg PO MO empagliflozin (Jardiance) 25 mg PO DAILY finasteride 5 mg PO DAILY flash glucose scanning reader ([employer]point[employer] Valarie 2 Yoder) As directed flash glucose sensor (FreeStyle Valarie 2 Sensor kit) As directed furosemide 20 mg PO DAILY gabapentin 300 mg PO TID gemfibrozil 600 mg PO BID hydralazine 10 mg PO BID insulin aspart U-100 (Novolog FlexPen U-100 Insulin aspart) 10 units (0.1 mL) subcut TID insulin glargine (Basaglar KwikPen U-100 Insulin) 20 units (0.2 mL) subcut BEDTIME lancets (FreeStyle Lancets) 3 times per day levetiracetam (Keppra) 250 mg PO BID lidocaine 4% (Aspercreme (lidocaine)) 1 patch topical DAILY PRN losartan 50 mg PO BID meclizine 25 mg PO BID PRN mecobalamin (vitamin B12) 1,000 mcg sublingual DAILY metformin 500 mg PO BID metoprolol succinate ER 100 mg PO QPM omeprazole 20 mg PO DAILY paroxetine HCl 20 mg PO BEDTIME pen needle, diabetic As directed phenobarbital 32.4 mg PO QID Shower Chair As directed sumatriptan succinate 50 mg PO DAILY PRN tamsulosin 0.8 mg (2 x 0.4 mg) PO BEDTIME triamcinolone acetonide 0.025% 1 appl topical BID PRN Tobacco use date assessed: 07/13/22 Fall risk assessment: 2 + Falls in past year Last assessed Fall Risk: 03/01/23 Dental Screening Dental Screen Date: 03/01/23 Did you have a dental visit in the last 12 months?: No Did you have a dental problem in the last 6 months where you did not have access to dental care?: No Was dental information given to patient?: Patient has dentist HPI [facility] ED f/u02/06/23 HPI Details 62-year-old male wishes to discuss his m edical health via tele health. He has now moved to [facility] living. He gets 3 meals a day and lives in an apartment. He is able to get his blood sugar checked regularly. He is able to move from the wheelchair to the bathroom without assistance. 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 Essential (primary) hypertension GERD (gastroesophageal reflux disease) Renal cysts, acquired, bilateral Seizure Surgical History History of orthopedic surgery History of cataract surgery History of fasciotomy Family History Father Myocardial infarction Mother Acute CVA (cerebrovascular accident) Brother In good health Brother In good health Sister In good health Sister In good health Social History Housing: Apartment Alcohol intake: never Patient Tobacco Use Status: Former Tobacco user e-Cigarette/Vaping Use: Never Used Second Hand Smoke Exposure: No Advance Directives Date on File: 10/26/22 service: No Current occupational status: disabled Cognitive needs: Yes (wheelchair) Hearing needs: No Vision needs: Yes (glasses) Questionnaire Thrive Questionnaire Date Thrive assessed: 07/13/22 DANA-7 AMB Questionnaire DANA-7 Date DANA - 7 assessed: 07/13/22 Source: Developed by Drs. Jacques Holder, Chantell Watters, Siddhartha Suggs and colleagues, with an educational jackelyn from [employer]. Fall Risk Assessment Fall Risk Assessment Fall risk assessment: 2 + Falls in past year Physical exam (Primary Care) Tobacco/Smoking Status: Tobacco use Status Tobacco use date assessed 07/13/22 03/01/23 09:45 Patient Tobacco Use Status Former Tobacco user 03/01/23 09:45 e-Cigarette/Vaping Use Never Used 03/01/23 09:45 Thrive Assessment: Date of Thrive Assessment Date Thrive assessed 07/13/22 03/01/23 09:45 Telehealth Telehealth Location of provider rendering services: practice address Location of patient: address on file Patient Identification confirmed using: Name, : Yes Telehealth method: voice only Patient verbally consented to treatment: Yes Patient verbally consented to billing insurance company: Yes Patient informed of any privacy concerns related to visit: Yes Minutes spent on Phone/Video with Pt.: 15 Results Reviewed Results Reviewed: His admission detailed at [facility] emergency room and hospital were reviewed. 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 Insulin dosages were reviewed with him. Medications: New insulin glargine (Basaglar KwikPen U-100 Insulin) 20 units (0.2 mL) subcut BEDTIME 15 mL 1RF insulin aspart U-100 (Novolog FlexPen U-100 Insulin aspart) 10 units (0.1 mL) subcut TID 15 mL 0RF sumatriptan succinate 50 mg PO DAILY PRN 7 tabs 0RF Migraine Headache furosemide 20 mg PO DAILY 90 tabs 1RF Changed From pen needle, diabetic As directed 1,200 ea 0RF E11.39 - Type 2 diabetes mellitus with other diabetic ophthalmic complication, E11.65 - Type 2 diabetes mellitus with hyperglycemia To pen needle, diabetic As directed 1,200 ea 0RF E11.39 - Type 2 diabetes mellitus with other diabetic ophthalmic complication, E11.65 - Type 2 diabetes mellitus with hyperglycemia Discontinued blood sugar diagnostic (Accu-Chek Guide test strips) Discontinued Reason: Insurance Denied As directed three times per day 100 ea 0RF E11.39 - Type 2 diabetes mellitus with other diabetic ophthalmic complication, E11.65 - Type 2 diabetes mellitus with hyperglycemia flash glucose sensor (FreeStyle Valarie 14 Day Sensor kit) Discontinued Reason: Insurance Denied As directed 2 ea 3RF lancets (Accu-Chek Softclix Lancets) Discontinued Reason: Insurance Denied As directed three times per day 100 ea 11RF E11.39 - Type 2 diabetes mellitus with other diabetic ophthalmic complication, E11.65 - Type 2 diabetes mellitus with hyperglycemia flash glucose scanning reader ([employer] Valarie 14 Day Yoder) Discontinued Reason: Insurance Denied As directed 1 ea 0RF Coding Level of Care Code Tele Est Pt Level 3 (95127) Diagnoses 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
== END 2023-03-01 11:00 | disposition home or self-care (01) ==
LOC: HO.HMGH 09:46
PROVIDERS: PCP Internal Medicine; Visit Provider Internal Medicine
DX: E11.39 Type 2 diabetes mellitus with other diabetic ophthalmic complication (principal); E11.65 Type 2 diabetes mellitus with hyperglycemia
CPT/HCPCS: 99442